=== PATIENT | female | born 1945 | race Caucasian/White ===

== ENCOUNTER 2018-01-23 14:10 | Inpatient (IN) | payer OTHER ==
[~2018-01-23] VITALS: Ht 167.6 cm; Wt 68.5 kg
[2018-01-23 14:12] VITALS: BP 112/66
--- NOTE | 2018-01-23 14:12 | NUR ---
PT BIBA BLS TO BED 5
--- NOTE | 2018-01-23 14:20 | NUR ---
DINESH FROM [facility] FOR LOSS OF APITITE X 3 DAYS. CURRENTLY BEING TREATED FOR UTI AND YEAST INFECTION. LOSS OF 12 LBS OVER PAST MONTH. PT IS NON VERBAL DUE TO CVA HISTORY, ACCORDING TO EMS ONLY ANSWERS YES AND NO PERIODICALLY. TRANSFERED TO BED 5 VIA GURNEY HX: HTN, DM, CVA
[2018-01-23 15:39] LABS: BASOPHILS % (AUTO) 0.3 % (0.0-2.0); EOSINOPHILS # (AUTO) 0.1 K/uL (0-0.4); EOSINOPHILS % (AUTO) 1.2 % (0.0-4.0); HEMATOCRIT 45.7 % (36-48); HEMOGLOBIN 15.4 g/dL (12.0-16.0); LYMPHOCYTES % (AUTO) 24.7 % (20.5-51.1); MEAN CORPUSCULAR HEMOGLOBIN 32 pg (27-31); MEAN CORPUSCULAR HGB CONC 34 g/dL (33-37); MEAN CORPUSCULAR VOLUME 95.9 fL (80-94); MONOCYTES # (AUTO) 0.6 K/uL (0.8-1.0); MONOCYTES % (AUTO) 7.3 % (1.7-9.3); NEUTROPHILS # (AUTO) 5.4 K/uL (1.8-7.7); NEUTROPHILS % (AUTO) 66.5 % (42.2-75.2); PLATELET COUNT (AUTO) 220 K/uL (140-450); RED BLOOD CELL COUNT(AUTO) 4.76 MIL/uL (4.20-5.40); RED CELL DISTRIBUTION WIDTH 13.2 % (11.6-13.7); WHITE BLOOD COUNT (AUTO) 8.2 K/uL (4.8-10.8)
--- NOTE | 2018-01-23 16:00 | NUR ---
# 16 FR Urinary catheter inserted utilizing sterile technique. Immediate return of 30 ml dwain/yellow slightly cloudy urine noted. Urine sample collected and sent to lab. Pt tolerated procedure well.
[2018-01-23 16:07] LABS: ANION GAP 14.3 (8-16); CARBON DIOXIDE 29.5 mmol/L (21-32); CHLORIDE 98 mmol/L (98-107); CREATININE 0.7 mg/dL (0.6-1.3); GLUCOSE 214 mg/dL (74-106); POTASSIUM 3.8 mmol/L (3.5-5.1); SODIUM SERUM 138 mmol/L (136-145); UREA NITROGEN, BLOOD 23 mg/dL (7-18)
[2018-01-23 16:12] LABS: ALBUMIN 3.3 g/dL (3.4-5.0); ASPARTATE AMINOTRANSFERASE 35 U/L (15-37); TOTAL BILIRUBIN 0.6 mg/dL (0.0-1.0)
--- NOTE | 2018-01-23 16:28 | NUR ---
URINE SPECIMEN SEND TO THE LAB FOR URINALYSIS
[2018-01-23 16:54] LABS: APPEARANCE,URINE SL CLOUDY (CLEAR); BILIRUBIN,URINE NEGATIVE (NEGATIVE); BLOOD, URINE TRACE-L (NEGATIVE); COLOR,URINE YELLOW (YELLOW); LEUKOCYTE ESTERASE ,URINE 2+ (NEGATIVE); NITRITE, URINE NEGATIVE (NEGATIVE); PH,URINE 5.5 (5.0-9.0); UGLUCOSE NEGATIVE (NEGATIVE)
[2018-01-23 17:04] LABS: RBC,URINE 3-10 (FEW) /HPF (0-5)
[2018-01-23 17:05] LABS: WBC,URINE TOO MANY TO COUNT /HPF (0-5); YEAST,URINE Few /HPF (None Seen)
[2018-01-23] MEDS ORDERED: NACL 0.9% 1,000 ML IV ONE (17:15)
[2018-01-23] MEDS ORDERED: cefTRIAXone 1,000 MG VIAL ONE (17:25)
[2018-01-23] MEDS ORDERED: DEXT 5% / NACL 0.45% 1,000 ML IV SCH (17:36)
[2018-01-23] MEDS ORDERED: ONDANSETRON 4 MG/2 ML VIAL IM/IVP PRN (17:40)
[2018-01-23] MEDS ORDERED: ACETAMINOPHEN 325 MG TAB PO PRN (17:40)
[2018-01-23] MEDS ORDERED: LORazepam 2 MG/ML VIAL IM/IVP PRN (17:40)
[2018-01-23] MEDS ORDERED: DOCUSATE SODIUM 100 MG GELCAP PO PRN (17:40)
[2018-01-23] MEDS ORDERED: ZOLPIDEM 5 MG TAB PO PRN (17:40)
--- NOTE | 2018-01-23 18:15 | NUR ---
Patient will be admitted to care of DR FORMAN. Admited to TELE room 107B. Belongings list completed. Report to PRUDENCE MUIR.
--- NOTE | 2018-01-23 18:20 | NUR ---
PT ADMITTED TO TELE. BEDSIDE REPORT GIVEN BY DUSTY KELLY RN. PT TRANSFERRED TO BED FROM [facility] WITH ASSIST. PT WITH R SIDED WEAKNESS. PT IS AWAKE AND ORIENTED X1. UNABLE TO STATE BIRTHDAY, DATE, OR PLACE. PT IS CALM. HAD INCONTINENT URINE AND BM. CHANGED LINENS AND GOWN. NO WOUNDS ON BACK OR BOTTOM. WITH MULTIPLE SKIN ABRASIONS ON R LLE AND R FOOT. COVERED WITH DRY DRESSING AND VERSATEL. TELE MONITOR APPLIED. MRSA SWAB DONE. VS: TEMP 97.8, HR 60, BP 124/61, RR 18, O2 SAT 97% ON RA. NO COUGH. NO SOB. IV TO L AC 20G INTACT. NS BOLUS STILL INFUSING. ORIENTED PT TO ROOM AND CALL LIGHT. PT STATED "OK." BUT COULD NOT RETURN DEMONSTRATION OF UNDERSTANDING CALL LIGHT USE. BED ALARM ON. WILL CONTINUE TO MONITOR.
[2018-01-23 18:27] LABS: BARBITURATE, URINE NEG. ng/ml (NEG <=200); BENZODIAZEPINE, URINE NEG. ng/mL (NEG <=200); CANNABINOID, URINE NEG. ng/mL (NEG <=50); COCAINE, URINE NEG. ng/mL (NEG <=300); OPIATE, URINE NEG. ng/mL (NEG <=2000); PHENCYCLIDINE SCREEN,URINE NEG. ng/mL (NEG <=25)
[2018-01-23 18:43] LABS: MAGNESIUM 1.8 mg/dL (1.8-2.4); PHOSPHORUS 3.4 mg/dL (2.5-4.9); THYROID STIMULATING HORMONE 1.35 uIU/mL (0.34-3.74)
[2018-01-23 18:50] LABS: PROTHROMBIN TIME 10.9 secs (10.8-13.4)
[2018-01-23] MEDS ORDERED: INSU100S22 SUBQ (19:21)
[2018-01-23] MEDS ORDERED: LISI10TA11 PO (19:21)
[2018-01-23] MEDS ORDERED: ASPI81CT89 PO (19:21)
[2018-01-23] MEDS ORDERED: APID SUBQ (19:21)
[2018-01-23] MEDS ORDERED: MIRT15TA PO (19:21)
[2018-01-23] MEDS ORDERED: LOV40I SUBQ (19:21)
[2018-01-23] MEDS ORDERED: ATOR40TA PO (19:21)
--- NOTE | 2018-01-23 19:29 | NUR ---
ENDORSED PT TO WET ROASTER NURSE ALEX AT BEDSIDE FOR CONTINUITY OF CARE. PT IN STABLE CONDITION.
--- NOTE | 2018-01-23 19:30 | NUR ---
RECEIVED FROM AM RN IN BED AWAKE AND ALERT. A/O X 1. FROM SNF WITH DX. OF UTI, DEHYDRATION AND ANOREXIA. PT. WITH ABRASIONS TO RIGHT LOWER EXTREMITY. INCONTINENT TO B AND B. IVF SITE TO LAC#20 INTACT AND NO INFILTRATION NOTED. BED ALARM CLINICAL PROJECT ASSISTANT LIGHT WITH IN REACH. NEEDS WILL BE ANTICIPATED AND WILL BE MET. TELEMETRY MONITORING. AFEBRILE. NO EDEMA NOTED.
[2018-01-23] MEDS ORDERED: DEXTROSE 50% 50 ML SYR IVP PRN ×2 (20:00)
[2018-01-23 20:39] VITALS: BP 126/62
[2018-01-23] MEDS: BLOOD GLUCOSE MONITORING 1 DEV DEV FS SCH (21:00)
[2018-01-23] MEDS: NACL 0.9% 1,000 ML IV SCH (21:00)
[2018-01-23] MEDS ORDERED: NON-FORMULARY ITEM (Insulin Glargine,Hum.rec.anlog (Lantus Solostar) 15 UNIT) SUBQ SCH (21:00)
[2018-01-23] MEDS: ATORVASTATIN 20 MG TAB PO SCH (22:05)
[2018-01-23] MEDS: MIRTAZAPINE 15 MG TAB PO SCH (22:05)
[2018-01-23] MEDS: INSULIN LANTUS 100 UNITS/ML 10 ML VIAL SUBQ SCH (22:08)
--- NOTE | 2018-01-24 | NUR ---
PT. SLEEPING WELL AT THIS TIME. NO NOTED S/S OF HYPO/HYPERGLYCEMIA. IVF INFUSING WELL. DENIES PAIN. WAKES UP EASILY WHEN TOUCHED. NEEDS ANTICIPATED AND MET. TURN TO SIDES Q 2H. PT. ABLE TO HELP IN TURNING SELF. ENCOURAGED TO STAY ON TURNED SIDE.
[2018-01-24 00:52] VITALS: BP 113/40
--- NOTE | 2018-01-24 02:02 | NUR ---
RESIDENT MADE AWARE OF ABRASIONS TO SKIN. WAITING FOR TREATMENT ORDERS.
--- NOTE | 2018-01-24 04:10 | NUR ---
SLEEPING WELL. NO RESTLESSNESS NOTED. CALL LIGHT WITH IN REACH.
[2018-01-24 04:44] VITALS: BP 127/51
[2018-01-24] MEDS: NACL 0.9% 1,000 ML IV SCH ×2 (05:59→09:39)
[2018-01-24] MEDS: BLOOD GLUCOSE MONITORING 1 DEV DEV FS SCH ×4 (06:36→20:52)
--- NOTE | 2018-01-24 07:20 | NUR ---
RECEIVED REPORT FROM SOLIDWORKS DRAFTER RN. PT IN STABLE CONDITION, RESTING IN BED AND AROUSABLE BY VOICE. RIGHT SIDED WEAKNESS DUE TO HX CVA. ABRASIONS ON RIGHT LEG AND TOES COVERED WITH CLEAN AND DRY DRESSINGS. IV SITE PATENT AND RUNNING IVF PER MD ORDERS. ON DYSPHAGIA PRECAUTIONS. PT IS INCONTINENT. HEART RHYTHM IS REGULAR. LUNGS CTA. ALL SAFETY MEASURES IN PLACE, WILL CONTINUE TO MONITOR.
--- NOTE | 2018-01-24 07:23 | NUR ---
ENDORSED TO THE AM RN SLEEPING. NO RESTLESSNESS. TELEMETRY MONITORING. NEEDS ANTICIPATED AND MET. TOTAL CARE.
[2018-01-24] MEDS ORDERED: INSULIN GLULISINE 5 UNIT SUBQ SCH (07:30)
[2018-01-24 08:00] VITALS: BP 128/65
--- NOTE | 2018-01-24 08:00 | NUR ---
PT REFUSING BREAKFAST. ENCOURAGED PATIENT TO TRY SOME FOODS, BUT PATIENT STATES SHE HAS "NO APPETITE".
[2018-01-24 08:14] LABS: T4 (THYROXINE) 7.5 ug/dL (4.5-12.0)
[2018-01-24] MEDS ORDERED: FLUCONAZOLE 100 MG TAB PO SCH ×2 (08:15→09:00)
[2018-01-24] MEDS: LACTOBACILLUS RHAMNOSUS GG 1 EACH CAP PO SCH (09:29)
[2018-01-24] MEDS: ASPIRIN 81 MG TAB.CHEW PO SCH (09:29)
--- NOTE | 2018-01-24 09:29 | NUR ---
SCHEDULED MEDS ADMINISTERED PER MD ORDERS. PT DENIES PAIN AND DISCOMFORT.
[2018-01-24] MEDS: LISINOPRIL 10 MG TAB PO SCH (09:30)
[2018-01-24] MEDS: ENOXAPARIN 40 MG/0.4 ML SYR SUBQ SCH (09:34)
--- NOTE | 2018-01-24 09:35 | NUR ---
PATIENT HAS BEEN SCREENED AND CATEGORIZED HIGH NUTRITION RISK. PATIENT WILL BE SEEN WITHIN 1-2 DAYS OF ADMISSION. 01/24/18-01/25/[address]
[2018-01-24 09:45] LABS: BASOPHILS # (AUTO) 0.1 K/uL (0.00-0.22); EOSINOPHILS # (AUTO) 0.3 K/uL (0-0.4); EOSINOPHILS % (AUTO) 4.2 % (0.0-4.0); HEMATOCRIT 40.3 % (36-48); HEMOGLOBIN 13.6 g/dL (12.0-16.0); LYMPHOCYTES # (AUTO) 2.2 K/uL (2.5-16.5); LYMPHOCYTES % (AUTO) 29.2 % (20.5-51.1); MEAN CORPUSCULAR HEMOGLOBIN 33 pg (27-31); MEAN CORPUSCULAR HGB CONC 34 g/dL (33-37); MONOCYTES # (AUTO) 0.5 K/uL (0.8-1.0); MONOCYTES % (AUTO) 5.9 % (1.7-9.3); NEUTROPHILS # (AUTO) 4.6 K/uL (1.8-7.7); NEUTROPHILS % (AUTO) 59.7 % (42.2-75.2); PLATELET COUNT (AUTO) 199 K/uL (140-450); RED CELL DISTRIBUTION WIDTH 13.1 % (11.6-13.7); WHITE BLOOD COUNT (AUTO) 7.7 K/uL (4.8-10.8)
[2018-01-24 10:17] LABS: ANION GAP 10.9 (8-16); CARBON DIOXIDE 29.4 mmol/L (21-32); CHLORIDE 101 mmol/L (98-107); CREATININE 0.6 mg/dL (0.6-1.3); GLUCOSE 205 mg/dL (74-106); POTASSIUM 3.3 mmol/L (3.5-5.1); SODIUM SERUM 138 mmol/L (136-145); UREA NITROGEN, BLOOD 13 mg/dL (7-18)
[2018-01-24] MEDS ORDERED: POTASSIUM CHLORIDE 10 MEQ TABER PO SCH (11:15)
[2018-01-24 12:00] VITALS: BP 130/45
--- NOTE | 2018-01-24 12:30 | NUR ---
PT REFUSING LUNCH. QUALITY CONTROL ASSESSOR HELPED PATIENT WITH TRYING EACH TYPE OF FOOD, BUT PATIENT CONTINUES TO REFUSE AFTER TRYING THE FOODS.
[2018-01-24] MEDS: INSULIN LISPRO SLIDING SCALE 100 UNITS/ML VIAL SUBQ PRN (12:32)
[2018-01-24] MEDS ORDERED: POTASSIUM CHLORIDE 20% 40 MEQ/15 ML UDC PO SCH (12:39)
--- NOTE | 2018-01-24 13:16 | NUR ---
PT DRANK ABOUT HALF OF THE PRESCRIBED KCL ORAL SOLUTION. REFUSES TO CONTINUE DRINKING IT.
--- NOTE | 2018-01-24 14:30 | NUR ---
DRESSING ON RIGHT LEG CHANGED. Addendum: 01/24/18 at 1659 by Chiqui Jama Meng, RN ALL DRESSINGS (3) ON RIGHT LEG CHANGED. ABRASIONS ON RIGHT TOES OPEN TO AIR, NO DRAINAGE NOTED.
[2018-01-24 14:31] LABS: CHOL/HDL RATIO 3.2 (1-4.5)
[2018-01-24 16:00] VITALS: BP 125/42
--- NOTE | 2018-01-24 16:00 | NUR ---
Palliative Care Specialist Notes Late Entry: I attempted to contact Patient's friend Subha Sosa at . Patient friend was not available and I left her a voicemail MGS with my contact Inf. and a request for a call back.
--- NOTE | 2018-01-24 16:01 | NUR ---
PT SLEEPING IN BED, AROUSABLE BY VOICE. NO COMPLAINTS OF PAIN OR DISCOMFORT. WILL CONTINUE TO MONITOR.
--- NOTE | 2018-01-24 16:20 | NUR ---
Punch Hand Notes Late entry: I call [facility] at to discuss and gather patient's additional information. I spoke to Cleo from admissions stating that patient is on a 7 days skilled behold. Per staff patient has a health care provider Dr. Edy Boone who see patient as needed in the facility and patient is able to return to [facility] when she is ready and clear for discharge.
--- NOTE | 2018-01-24 17:07 | NUR ---
NOTIFIED DR. SNELL REGARDING PT REFUSING BREAKFAST AND DINNER AND LAST BLOOD SUGAR AT [address] SNELL TO PUT IN ORDER FOR D5 IVF. Addendum: 01/24/18 at 1919 by Chiqui Jama Meng, RN RobertNS
[2018-01-24] MEDS: DEXT 5% / NACL 0.9% 500 ML IV SCH (19:18)
--- NOTE | 2018-01-24 19:19 | NUR ---
ENDORSED PLAN OF CARE TO BOOKSEAMER BLINDSTITCH RN. PATIENT IS IN STABLE CONDITION.
--- NOTE | 2018-01-24 19:19 | NUR ---
RECEIVED PT REPORT AT BEDSIDE. PT IN STABLE CONDITION. PT IS AWAKE. PT ON RA. IV ACCESS IN L AC 20G WITH IVF RUNNING PER MD ORDERS. IV IS PATENT AND INTACT. PT HAS R SIDED WEAKNESS. PT HAS ABRASIONS TO R LEG AND FOOT. NO C/O PAIN AT THIS TIME. BED LOCKED, LOW POSITION, WITH SIDE RAILS UP X2. BOARD UPDATED. WILL CONTINUE TO MONITOR PT.
[2018-01-24 20:00] VITALS: BP 102/44
[2018-01-24] MEDS: ATORVASTATIN 20 MG TAB PO SCH (20:52)
--- NOTE | 2018-01-24 20:52 | NUR ---
BS CHECKED, 128. NO INSULIN COVERAGE NEEDED PER MD ORDERS.
[2018-01-24] MEDS: MIRTAZAPINE 15 MG TAB PO SCH (20:53)
[2018-01-24] MEDS: INSULIN LANTUS 100 UNITS/ML 10 ML VIAL SUBQ SCH (20:54)
--- NOTE | 2018-01-24 23:00 | NUR ---
PT IS ASLEEP IN BED. NO S/SX OF DISTRESS. WILL CONTINUE TO MONITOR.
[2018-01-25] VITALS: BP 98/60
--- NOTE | 2018-01-25 00:47 | NUR ---
PT VS WITHIN NORMAL LIMITS. NO S/SX OF DISTRESS. WILL CONTINUE TO MONITOR.
[2018-01-25] MEDS: DEXT 5% / NACL 0.9% 500 ML IV SCH ×2 (01:45→09:50)
[2018-01-25] MEDS: NACL 0.9% 1,000 ML IV SCH ×2 (03:00→12:45)
--- NOTE | 2018-01-25 03:01 | NUR ---
PT ASLEEP IN BED. NO S/SX OF DISTRESS. WILL CONTINUE TO MONITOR PT.
[2018-01-25 04:00] VITALS: BP 122/74
--- NOTE | 2018-01-25 04:05 | NUR ---
PT VS WITHIN NORMAL LIMITS. ALL NEEDS ARE MET AT THIS TIME. WILL CONTINUE TO MONITOR PT.
[2018-01-25] MEDS: BLOOD GLUCOSE MONITORING 1 DEV DEV FS SCH ×4 (05:25→20:00)
--- NOTE | 2018-01-25 05:26 | NUR ---
BS CHECKED, 146. PER MD ORDERS NO COVERAGE NEEDED. WILL CONTINUE TO MONITOR PT.
--- NOTE | 2018-01-25 07:17 | NUR ---
ENDORSED PT TO DAY SHIFT NURSE FOR CONTINUITY OF CARE. PT IN STABLE CONDITION.
[2018-01-25 08:00] VITALS: BP 134/61
--- NOTE | 2018-01-25 08:00 | NUR ---
PT ENCOURAGED TO EAT MORE FOR BREAKFAST.
--- NOTE | 2018-01-25 09:08 | NUR ---
RECEIVED REPORT FROM COUNTING MACHINE OPERATOR RN. PT SLEEPING IN BED, AROUSABLE BY VOICE. NO COMPLAINTS OF PAIN OR DISCOMFORT. RIGHT SIDED WEAKNESS DUE TO HX CVA. PT IS ON BEDREST AND INCONTINENT. ABRASIONS ON RIGHT LEG AND TOES, DRESSINGS DRY AND INTACT. PT REFUSED MORNING LABS. ALL SAFETY PRECAUTIONS IN PLACE, WILL CONTINUE TO MONITOR. Addendum: 01/25/18 at 0913 by Chiqui Jama Meng, RN REAL TIME [id number] IV SITE PATENT AND RUNNING IVF PER MD ORDERS. ON DYSPHAGIA PRECAUTIONS.
--- NOTE | 2018-01-25 09:21 | NUR ---
01/25/18 RD INITIAL ASSESSMENT COMPLETED PLEASE REFER TO NUTRITION ASSESSMENT UNDER CARE ACTIVITY FOR ESTIMATED NUTRITIONAL NEEDS. RD RECOMMENDATIONS: 1. CONTINUE ON CCHO 60 GM, MECHANICAL SOFT, NECTAR THICK LIQUIDS DIET TOLERATED. DIETARY/NURSING TO ENCOURAGE PO INTAKES. 2. CONSULT RDN PRN. 3. RD WILL F/U 2-3 DAYS; HIGH RISK. KAY JACOBSEN, MS, RDN
[2018-01-25] MEDS: ASPIRIN 81 MG TAB.CHEW PO SCH (10:11)
[2018-01-25] MEDS: LACTOBACILLUS RHAMNOSUS GG 1 EACH CAP PO SCH (10:11)
[2018-01-25] MEDS: LISINOPRIL 10 MG TAB PO SCH (10:11)
--- NOTE | 2018-01-25 10:11 | NUR ---
SCHEDULED MEDS ADMINISTERED. PAIN DENIES PAIN AND DISCOMFORT.
[2018-01-25] MEDS: ENOXAPARIN 40 MG/0.4 ML SYR SUBQ SCH (10:13)
[2018-01-25 12:00] VITALS: BP 147/73
[2018-01-25 12:11] LABS: HEMATOCRIT 41.2 % (36-48); HEMOGLOBIN 13.7 g/dL (12.0-16.0); LYMPHOCYTES % (AUTO) 29.8 % (20.5-51.1); MEAN CORPUSCULAR HEMOGLOBIN 32 pg (27-31); MEAN CORPUSCULAR HGB CONC 33 g/dL (33-37); MEAN CORPUSCULAR VOLUME 96.1 fL (80-94); NEUTROPHILS % (AUTO) 57.1 % (42.2-75.2); PLATELET COUNT (AUTO) 178 K/uL (140-450); RED BLOOD CELL COUNT(AUTO) 4.29 MIL/uL (4.20-5.40); RED CELL DISTRIBUTION WIDTH 13.3 % (11.6-13.7)
[2018-01-25 12:12] LABS: BASOPHILS % (AUTO) 0.8 % (0.0-2.0); EOSINOPHILS # (AUTO) 0.2 K/uL (0-0.4); LYMPHOCYTES # (AUTO) 1.8 K/uL (2.5-16.5); MONOCYTES # (AUTO) 0.5 K/uL (0.8-1.0); MONOCYTES % (AUTO) 8.3 % (1.7-9.3); NEUTROPHILS # (AUTO) 3.4 K/uL (1.8-7.7)
[2018-01-25] MEDS: INSULIN LISPRO SLIDING SCALE 100 UNITS/ML VIAL SUBQ PRN ×2 (12:44→21:10)
[2018-01-25 12:46] LABS: CARBON DIOXIDE 26.6 mmol/L (21-32); CHLORIDE 105 mmol/L (98-107); CREATININE 0.6 mg/dL (0.6-1.3); GLUCOSE 189 mg/dL (74-106); POTASSIUM 3.6 mmol/L (3.5-5.1); SODIUM SERUM 140 mmol/L (136-145); UREA NITROGEN, BLOOD 6 mg/dL (7-18)
--- NOTE | 2018-01-25 12:50 | NUR ---
IVF INFUSING AT SLOWER RATE DUE TO PATIENT BENDING LEFT ARM, WHERE THE IV IS INSERTED IN LEFT AC. EDUCATED PATIENT ON KEEPING LEFT ARM STRAIGHT POSSIBLE.
[2018-01-25 12:58] LABS: MAGNESIUM 1.5 mg/dL (1.8-2.4); PHOSPHORUS 3.2 mg/dL (2.5-4.9)
[2018-01-25] MEDS ORDERED: MAG SULF 2000 MG/WATER PREMIX 50 ML IV ONE (13:50)
[2018-01-25] MEDS: DEXT 5% /NACL 0.9% 1,000 ML IV SCH (13:58)
--- NOTE | 2018-01-25 14:30 | NUR ---
PT RESTING IN BED, AROUSABLE BY VOICE. DENIES PAIN AND DISCOMFORT.
[2018-01-25] MEDS: MAGNESIUM SULFATE 1GM in DEXTROSE 5% 100 ML PREMIX IV SCH ×2 (15:14→18:08)
[2018-01-25 16:00] VITALS: BP 132/59
--- NOTE | 2018-01-25 16:30 | NUR ---
BLOOD GLUCOSE IS 116. NO INSULIN COVERAGE NEEDED.
--- NOTE | 2018-01-25 18:08 | NUR ---
SCHEDULED MAGNESIUM SULFATE ADMINISTERED. ENCOURAGED PT TO KEEP ARM STRAIGHT TO AID IN V PATENCY.
--- NOTE | 2018-01-25 19:16 | NUR ---
ENDORSED PLAN OF CARE TO KEY ATTENDANT RN. PT IN STABLE CONDITION.
--- NOTE | 2018-01-25 19:16 | NUR ---
RECEIVED PT REPORT AT PT BEDSIDE. PT IN STABLE CONDITION. PT IS AWAKE IN BED. IV ACCESS IN L AC 20G WITH IVF RUNNING PER MD ORDERS. PT IS ON RA. ABRASIONS TO R LEG, FOOT AND TOES. BED IS LOCKED, LOWEST POSITION, WITH SIDE RAILS UP X2. CALL LIGHT IS WITHIN REACH. BOARD UPDATED. WILL CONTINUE TO MONITOR PT.
[2018-01-25 20:00] VITALS: BP 101/56
[2018-01-25] MEDS: ATORVASTATIN 20 MG TAB PO SCH (21:06)
[2018-01-25] MEDS: MIRTAZAPINE 15 MG TAB PO SCH (21:06)
--- NOTE | 2018-01-25 21:10 | NUR ---
BS CHECKED, 174. INSULIN COVERAGE GIVEN PER MD ORDERS. ALL OTHER ORDERED MEDICATIONS ADMINISTERED. PT TOLERATED WELL. WILL CONTINUE TO MONITOR.
[2018-01-25] MEDS: INSULIN LANTUS 100 UNITS/ML 10 ML VIAL SUBQ SCH (21:11)
[2018-01-26] VITALS: BP 112/53
--- NOTE | 2018-01-26 | NUR ---
PT VS WITHIN NORMAL LIMITS. PT RESTING COMFORTABLY IN BED. WILL CONTINUE TO MONITOR.
[2018-01-26] MEDS: DEXT 5% /NACL 0.9% 1,000 ML IV SCH ×2 (02:23→20:40)
--- NOTE | 2018-01-26 02:23 | NUR ---
NEW BAG OF IVF STARTED. PT IS WATCHING TV IN BED. ALL NEEDS ARE MET AT THIS TIME. WILL CONTINUE TO MONITOR.
--- NOTE | 2018-01-26 03:30 | NUR ---
NEW IV 22G INSERTED IN R HAND. L AC IV DISCONTINUED D/T LEAKING. PT TOLERATED WELL. WILL CONTINUE TO MONITOR.
[2018-01-26 04:00] VITALS: BP 131/62
[2018-01-26] MEDS: BLOOD GLUCOSE MONITORING 1 DEV DEV FS SCH ×4 (05:46→20:40)
[2018-01-26] MEDS: INSULIN LISPRO SLIDING SCALE 100 UNITS/ML VIAL SUBQ PRN ×3 (05:51→16:49)
--- NOTE | 2018-01-26 05:51 | NUR ---
BS CHECKED, 158. INSULIN COVERAGE GIVEN PER MD ORDERS. WILL CONTINUE TO MONITOR.
[2018-01-26 07:16] LABS: BASOPHILS % (AUTO) 0.3 % (0.0-2.0); EOSINOPHILS # (AUTO) 0.2 K/uL (0-0.4); EOSINOPHILS % (AUTO) 3.6 % (0.0-4.0); HEMATOCRIT 40.2 % (36-48); HEMOGLOBIN 13.8 g/dL (12.0-16.0); LYMPHOCYTES # (AUTO) 1.8 K/uL (2.5-16.5); LYMPHOCYTES % (AUTO) 26.5 % (20.5-51.1); MEAN CORPUSCULAR HEMOGLOBIN 33 pg (27-31); MEAN CORPUSCULAR HGB CONC 34 g/dL (33-37); MONOCYTES # (AUTO) 0.6 K/uL (0.8-1.0); MONOCYTES % (AUTO) 8.2 % (1.7-9.3); NEUTROPHILS # (AUTO) 4.2 K/uL (1.8-7.7); NEUTROPHILS % (AUTO) 61.4 % (42.2-75.2); PLATELET COUNT (AUTO) 186 K/uL (140-450); RED BLOOD CELL COUNT(AUTO) 4.23 MIL/uL (4.20-5.40); RED CELL DISTRIBUTION WIDTH 13.2 % (11.6-13.7); WHITE BLOOD COUNT (AUTO) 6.8 K/uL (4.8-10.8)
--- NOTE | 2018-01-26 07:16 | NUR ---
ENDORSED PT TO DAY SHIFT NURSE FOR CONTINUITY OF CARE. PT IN STABLE CONDITION.
--- NOTE | 2018-01-26 07:17 | NUR ---
RECEIVED REPORT FROM THE QUALITY ASSURANCE SPECIALIST NURSE AT BEDSIDE FOR CONTINUITY OF CARE. PT IS SLEEPING. NOTED PT IS ON ROOM AIR. PT HAS R SIDED WEAKNESS. SKIN- R LEG 3 COVERED DRESSING. PILLOW SUPPORTING LEG IS STAINED MODERATELY WITH DRAINAGE. WOUND CONSULT, SWALLOW EVAL, FNS EVAL ALL SCHEDULED FOR TODAY. IV ON R HAND 22G D5NS AT 60ML INFUSING. WILL CONTINUE TO MONITOR PT.
[2018-01-26 07:21] LABS: ANION GAP 8.5 (8-16); CHLORIDE 105 mmol/L (98-107); CREATININE 0.6 mg/dL (0.6-1.3); GLUCOSE 164 mg/dL (74-106); POTASSIUM 3.5 mmol/L (3.5-5.1); SODIUM SERUM 140 mmol/L (136-145); UREA NITROGEN, BLOOD 4 mg/dL (7-18)
[2018-01-26 07:24] LABS: PHOSPHORUS 3.2 mg/dL (2.5-4.9)
[2018-01-26 08:00] VITALS: BP 121/64
--- NOTE | 2018-01-26 08:00 | NUR ---
V/S WITHIN NORMAL RANGE. BREAKFAST IS HERE BUT IS REFUSING. PAVING CONTRACTOR WILL TRY AND SEE IF SHE CAN EAT SOME. WILL BE BACK WITH MORNING MEDS.
[2018-01-26] MEDS ORDERED: ASCO1CAP75 PO (08:30)
[2018-01-26] MEDS ORDERED: SULF-58 PO (08:30)
[2018-01-26] MEDS: ASPIRIN 81 MG TAB.CHEW PO SCH (09:03)
[2018-01-26] MEDS: LACTOBACILLUS RHAMNOSUS GG 1 EACH CAP PO SCH (09:04)
[2018-01-26] MEDS: LISINOPRIL 10 MG TAB PO SCH (09:04)
[2018-01-26] MEDS: ENOXAPARIN 40 MG/0.4 ML SYR SUBQ SCH (09:05)
--- NOTE | 2018-01-26 09:05 | NUR ---
ADMINISTERED MORNING MEDS, CRUSHED IN APPLE SAUCE. PT TOLERATED WELL. WILL CONTINUE TO MONITOR PT.
[2018-01-26] MEDS ORDERED: PROBIOTIC SCREEN 1 EA MISC MC PRN (10:45)
[2018-01-26 12:00] VITALS: BP 121/58
--- NOTE | 2018-01-26 13:21 | NUR ---
MAIL ORDER CLERK NOTE [id number] Bedside swallow evaluation completed following clearance by PRUDENCE Kapoor. Please refer to MAIL ORDER CLERK evaluation for full report. Recommend: -Continue mech soft/nectar thick liquid diet -Supervision for safety and PO intake, upright at 90 during and 20 min after intake, small bites/sips, slow rate, alternate bites/sips -Speech Lang Path consult to determine pt preferences (d/t pt aphasia, recommend use pictures to allow pt to answer y/n) -Recommend f/u with speech therapy services targeting language impairments at next level of care. -No further inpatient MAIL ORDER CLERK intervention indicated. PVE w/ RN re: results and recommendations. Provided further clarification on meeting pt language needs by emphasizing pictures when consulting w/pt re: dietary preferences. RN voiced understanding. [id number]: SHAHNAZ [id number]: SHAHNAZ [id number]: SHAHNAZ Swallow NOMS 3
--- NOTE | 2018-01-26 14:00 | NUR ---
SPOKE WITH RN AND FOOD PROCESSING PLANT MANAGER REGARDING PATIENTS EATING HABITS. RN REPORTS PATIENT WITH NO TROUBLE CHEWING / SWALLOWING AND BELIEVES PATIENT HAS A POOR APPETITE VS CHEWING /SWALLOWING PROBLEM. OBSERVED FOOD PROCESSING PLANT MANAGER HELPING PATIENT EAT LUNCH AT TIME OF RD VISIT. PATIENT RESPONDS TO YES / NO QUESTIONING BY SHAKING HEAD. PER PATIENT, NO TROUBLE OR PAIN SWALLOWING OR CHEWING FOODS. FOOD PROCESSING PLANT MANAGER REPORTS PATIENT PREFERS SOFTER TEXTURE FOODS AND IS DELAYED WITH SWALLOWING FOODS. SPOKE WITH RESIDENT PHYSICIAN REGARDING INTERACTIONS WITH PATIENT AND NURSING STAFF. RD AND PHYSICIAN IN AGREEMENT TO CONTINUE CURRENT DIET WITH CLOSE SUPERVISION FROM NURSING STAFF DURING MEAL TIMES. PRODUCT MANAGEMENT ANALYST RECOMMENDATIONS PENDING. PLEASE REFER TO RD INITIAL ASSESSMENT 01/25/18 FOR FURTHER RECOMMENDATIONS AND ESTIMATED NUTRIENT NEEDS. FOLLOW UP ASSESSMENT TO BE DONE 01/28/18 UNLESS CONSULTED SOONER. ARMANDO MOORE RD
--- NOTE | 2018-01-26 14:15 | NUR ---
spoke to Chiqui from [facility] and will not authorize transport transfer. will contact Nigel at [facility].
--- NOTE | 2018-01-26 15:00 | NUR ---
Quill Reamer Notes: I faxed to [facility] at Patient's Clinical Information and MD order to return to SNF with Antibiotics.
[2018-01-26 16:00] VITALS: BP 114/51
--- NOTE | 2018-01-26 16:35 | NUR ---
Homicide Squad Captain Notes: I received a call from abdiaziz Barkley at Stating that she has a problem and is unable to accept Patient back to the facility due to Ins. Scan won't authorize the patient to come back. I asked Abdiaziz additional information about patient and she agreed to send it back, I also asked her what was patient's discharge plan. Per Abdiaziz, facility was going to work with patient on a discharge plan this upcoming week unfortunately; she got sick and had to come to [facility]. I thanked abdiaziz for her information and I ended the call.
--- NOTE | 2018-01-26 17:00 | NUR ---
Caterers Helper Notes: I met with Patient on the attempt to inform her of the denial from insurance and discuss discharge. Patient was unable to responded any questions and was confused during meeting. Unable and unaware of location at [facility].
--- NOTE | 2018-01-26 17:35 | NUR ---
Manager Decision Support Notes: I faxed Board and Care Film Splicer Evangelist Dhaliwal at Patient's Clinical information for an evaluation to see if patient meets criteria for board and care placement.
--- NOTE | 2018-01-26 19:25 | NUR ---
ENDORSED PT TO THE TALENT SPECIALIST NURSE AT BEDSIDE FOR CONTINUITY OF CARE. PT IS IN STABLE CONDITION.
[2018-01-26] MEDS: ATORVASTATIN 20 MG TAB PO SCH (20:26)
[2018-01-26] MEDS: MIRTAZAPINE 15 MG TAB PO SCH (20:26)
--- NOTE | 2018-01-26 21:05 | NUR ---
MEDICATION GIVEN TOLERATED WELL. REPOSITIONED PATIENT TO HER SIDE AND PLACE IN COMFORTABLE POSITION. FALL PRECAUTION APPLIED. CALL LIGHT WITHIN REACH. NO S/S OF DISTRESS NOTED.
[2018-01-26] MEDS: INSULIN LANTUS 100 UNITS/ML 10 ML VIAL SUBQ SCH (21:21)
[2018-01-26 21:59] VITALS: BP 116/71
[2018-01-27] VITALS: BP 138/55
--- NOTE | 2018-01-27 01:10 | NUR ---
SEEN PATIENT ASLEEP ON BED. NO S/S OF DISTRESS. ALL NEEDS ATTENDED.
--- NOTE | 2018-01-27 01:58 | NUR ---
RECEIVED PATIENT AWAKE ON BED.FALL PRECAUTION APPLIED. DISCUSS PLAN OF CARE. CALL LIGHT WITHIN REACH. WILL CONTINUE TO MONITOR. Addendum: 01/27/18 at 0516 by Leo Melgar RN NOTE DONE @3811
--- NOTE | 2018-01-27 03:00 | NUR ---
REPOSITIONED PATIENT TO HER SIDE AND PLACE IN COMFORTABLE POSITION. FALL PRECAUTION APPLIED. CALL LIGHT WITHIN REACH. WILL CONTINUE TO MONITOR.
[2018-01-27 04:00] VITALS: BP 122/53
--- NOTE | 2018-01-27 05:00 | NUR ---
AM CARE DONE AND TURNED TO HER SIDE . NO S/S OF DISTRESS NOTED. CALL LIGHT WITHIN REACH.
[2018-01-27] MEDS: BLOOD GLUCOSE MONITORING 1 DEV DEV FS SCH ×4 (06:42→20:54)
[2018-01-27 07:13] LABS: BASOPHILS % (AUTO) 0.5 % (0.0-2.0); EOSINOPHILS # (AUTO) 0.3 K/uL (0-0.4); EOSINOPHILS % (AUTO) 5.6 % (0.0-4.0); HEMATOCRIT 38.2 % (36-48); LYMPHOCYTES # (AUTO) 2.4 K/uL (2.5-16.5); LYMPHOCYTES % (AUTO) 38.4 % (20.5-51.1); MEAN CORPUSCULAR HEMOGLOBIN 33 pg (27-31); MEAN CORPUSCULAR HGB CONC 34 g/dL (33-37); MEAN CORPUSCULAR VOLUME 96.4 fL (80-94); MONOCYTES # (AUTO) 0.6 K/uL (0.8-1.0); MONOCYTES % (AUTO) 9.1 % (1.7-9.3); NEUTROPHILS # (AUTO) 2.9 K/uL (1.8-7.7); NEUTROPHILS % (AUTO) 46.4 % (42.2-75.2); PLATELET COUNT (AUTO) 182 K/uL (140-450); RED BLOOD CELL COUNT(AUTO) 3.96 MIL/uL (4.20-5.40); RED CELL DISTRIBUTION WIDTH 13.3 % (11.6-13.7); WHITE BLOOD COUNT (AUTO) 6.2 K/uL (4.8-10.8)
--- NOTE | 2018-01-27 07:29 | NUR ---
ENDORSEMENT GIVEN AT BEDSIDE TO AM SHIFT NURSE FOR CONTINUITY OF CARE. PATIENT IN STABLE CONDITION.
--- NOTE | 2018-01-27 07:30 | NUR ---
RECEIVED REPORT FROM THE COMMISSARY REPRESENTATIVE NURSE AT BEDSIDE FOR CONTINUITY OF CARE. PT IS AWAKE AND ORIENTED. INTRODUCED MYSELF AND UPDATED THE BOARD. IV ON R HAND 22G D5NS @60ML INFUSING WELL. SKIN IN NON-INTACT. R LEG 3 WOUNDS, DRESSING INTACT. PLAN FOR TODAY: [facility]. WILL AWAIT ORDERS.
[2018-01-27 07:53] LABS: PHOSPHORUS 3.9 mg/dL (2.5-4.9)
[2018-01-27 07:54] LABS: ANION GAP 10.6 (8-16); CARBON DIOXIDE 29.1 mmol/L (21-32); CHLORIDE 108 mmol/L (98-107); CREATININE 0.5 mg/dL (0.6-1.3); GLUCOSE 138 mg/dL (74-106); POTASSIUM 3.7 mmol/L (3.5-5.1); SODIUM SERUM 144 mmol/L (136-145); UREA NITROGEN, BLOOD 4 mg/dL (7-18)
[2018-01-27 08:00] VITALS: BP 135/64
[2018-01-27] MEDS: LACTOBACILLUS RHAMNOSUS GG 1 EACH CAP PO SCH (09:10)
[2018-01-27] MEDS: LISINOPRIL 10 MG TAB PO SCH (09:10)
[2018-01-27] MEDS: ASPIRIN 81 MG TAB.CHEW PO SCH (09:10)
[2018-01-27] MEDS: ENOXAPARIN 40 MG/0.4 ML SYR SUBQ SCH (09:11)
--- NOTE | 2018-01-27 09:18 | NUR ---
ADMINISTERED MORNING MEDS CRUSHED IN APPLE SAUCE. PT TOLERATED WELL. NO SIGNS OF DISTRESS. DENIES PAIN. WILL CONTINUE TO MONITOR PT.
--- NOTE | 2018-01-27 10:00 | NUR ---
Him Director Notes: I contacted Board and Care Data Steward Evangelist Dhaliwal at to confirm that she received patient's clinical information faxed yesterday at . Per Evangelist She was out of the office at the time of my call however she was going to go to the office at about 11:00 review patient information and call me back with an answer to see if patient meets criteria for board and care placement.
[2018-01-27 12:00] VITALS: BP 145/80
[2018-01-27] MEDS: INSULIN LISPRO SLIDING SCALE 100 UNITS/ML VIAL SUBQ PRN ×3 (12:06→20:56)
--- NOTE | 2018-01-27 12:07 | NUR ---
ADMINISTERED 2U OF INSULIN FOR BS OF 193. PT TOLERATED WELL. WILL CONTINUITY OF CARE.
--- NOTE | 2018-01-27 15:00 | NUR ---
P/T HERE TO WORK WITH PT. PT GOT UP AND SAT ON SIDE OF BED WITH ASSISTANCE. PT BACK IN BED. WILL CONTINUE TO MONITOR PT.
--- NOTE | 2018-01-27 15:12 | NUR ---
FAXED CONCURRENT REVIEW TO [facility] [phone] PHONE VIDAL [phone]
[2018-01-27] MEDS: DEXT 5% /NACL 0.9% 1,000 ML IV SCH (15:58)
[2018-01-27 16:00] VITALS: BP 124/53
--- NOTE | 2018-01-27 16:38 | NUR ---
Metal Hanging Supervisor Notes: Board and Care Environmental Solutions Engineer Evangelist Dhaliwal at call me back stating that she has just finished reviewing patient's Clinical information and unfortunately patient is not accepted due to patient been bedbound. Per Evangelist she is unable to accept bed bound patients at these time. I thanked her for her information and I ended the call.
--- NOTE | 2018-01-27 19:20 | NUR ---
ENDORSED PT TO THE QUARTER TRIMMER NURSE AT BEDSIDE FOR CONTINUITY OF CARE. PT IS IN STABLE CONDITION.
--- NOTE | 2018-01-27 19:21 | NUR ---
RECEIVED PT AWAKE, AAOX4, VERBALLY RESPONSIVE WITH DELAYED AND SLIGHTLY GARBLED SPEECH DUE TO HX OF CVA, VITAL SIGNS STABLE, SB-SR ON TELE, DENIES ANY PAIN OR SOB, DRESSING TO RT FOOT DRY AND INTACT, IVF INFUSING WELL, PLAN OF CARE DISCUSS, SAFETY MEASURES IN PLACE, CALL LIGHT WITHIN REACH.
[2018-01-27 20:00] VITALS: BP 107/51
[2018-01-27] MEDS: ATORVASTATIN 20 MG TAB PO SCH (20:36)
[2018-01-27] MEDS: MIRTAZAPINE 15 MG TAB PO SCH (20:36)
--- NOTE | 2018-01-27 20:50 | NUR ---
BLOOD SUGAR CHECKED WITH 183 RESULT, COVERAGE GIVEN, SNACK PROVIDED BUT PT DOESN'T LIKE APPLE SAUCE, APPLE JUICE GIVEN WITH ASPIRATION PRECAUTION, DUE MEDS ADMINISTERED, ALL NEEDS ATTENDED.
[2018-01-27] MEDS: INSULIN LANTUS 100 UNITS/ML 10 ML VIAL SUBQ SCH (20:55)
[2018-01-28] VITALS: BP 108/48
--- NOTE | 2018-01-28 | NUR ---
PT SLEEPING, EASILY AROUSABLE, VITAL SIGNS STABLE, DENIES ANY PAIN, NO SOB NOTED, IVF INFUSING WELL, REPOSITIONED Q2H AND OFFLOAD PRESSURE AREAS, CONTINUE TO MONITOR CLOSELY.
--- NOTE | 2018-01-28 03:50 | NUR ---
PT SLEEPING, EASILY AROUSABLE, VITAL SIGNS STABLE, SB/SR ON TELE, DENIES PAIN, INCONTINENT OF URINE, PERINEAL CARE DONE, REPOSITIONED AND OFFLOAD PRESSURE AREAS, RT FOOT DRESSING DRY AND INTACT, MONITORED CLOSELY.
[2018-01-28 04:00] VITALS: BP 115/50
[2018-01-28] MEDS: DEXT 5% /NACL 0.9% 1,000 ML IV SCH ×2 (05:38→23:11)
--- NOTE | 2018-01-28 05:50 | NUR ---
PT SLEEPING EASILY AROUSABLE, BLOOD SUGAR CHECKED WITH 143 RESULT, DENIES PAIN, IVF INFUSING WELL, CONTINUE TO MONITOR CLOSELY.
[2018-01-28] MEDS: BLOOD GLUCOSE MONITORING 1 DEV DEV FS SCH ×4 (06:54→20:43)
--- NOTE | 2018-01-28 07:15 | NUR ---
PT AWAKE, NO SIGNS OF DISTRESS, REPORT GIVEN TO PRUDENCE CARPENTER FOR CONTINUITY OF CARE.
--- NOTE | 2018-01-28 07:20 | NUR ---
RECEIVED PT FROM DIABETES EDUCATOR NURSE, PT IS AWAKE AND LYING ON THE BED, SIDE RAILS ARE UP, BED IN LOW POSITION AND CALL LIGHT WITHIN REACH. FALL PRECAUTION INITIATED. PT HAS AN IV LINE IN PLACE AT THE RIGHT HAND G. 22 WITH D5NS AT 60 ML/HR, INTACT AND PATENT. PT HAS A RIGHT LEG ABRASION COVERED WITH GAUZE. RESPIRATIONS EVEN AND NO SIGN OF DISTRESS NOTED. WILL CONTINUE TO MONITOR.
[2018-01-28 07:37] LABS: BASOPHILS % (AUTO) 0.7 % (0.0-2.0); EOSINOPHILS # (AUTO) 0.3 K/uL (0-0.4); EOSINOPHILS % (AUTO) 4.8 % (0.0-4.0); HEMATOCRIT 36.5 % (36-48); HEMOGLOBIN 12.6 g/dL (12.0-16.0); LYMPHOCYTES # (AUTO) 2.7 K/uL (2.5-16.5); LYMPHOCYTES % (AUTO) 37.5 % (20.5-51.1); MEAN CORPUSCULAR HEMOGLOBIN 33 pg (27-31); MEAN CORPUSCULAR HGB CONC 35 g/dL (33-37); MEAN CORPUSCULAR VOLUME 95.5 fL (80-94); MONOCYTES # (AUTO) 0.5 K/uL (0.8-1.0); MONOCYTES % (AUTO) 7.4 % (1.7-9.3); NEUTROPHILS # (AUTO) 3.5 K/uL (1.8-7.7); NEUTROPHILS % (AUTO) 49.6 % (42.2-75.2); PLATELET COUNT (AUTO) 177 K/uL (140-450); RED BLOOD CELL COUNT(AUTO) 3.82 MIL/uL (4.20-5.40); RED CELL DISTRIBUTION WIDTH 13.2 % (11.6-13.7); WHITE BLOOD COUNT (AUTO) 7.1 K/uL (4.8-10.8)
--- NOTE | 2018-01-28 07:45 | NUR ---
PT IS AWAKE AND VITAL SIGNS TAKEN AND IS STABLE. NO SIGN OF DISTRESS NOTED AND WILL CONTINUE TO MONITOR.
[2018-01-28 08:00] VITALS: BP 134/54
--- NOTE | 2018-01-28 08:08 | NUR ---
DR. FORMAN AND THE RESIDENT DOCTORS CAME TO THE PT'S ROOM AND SPOKE TO THE PT AND TOLD THE PT THAT PHYSICAL THERAPY WILL BE COMING TO SEE AND EVALUATE THE PT. PT NODDED SIGN OF UNDERSTANDING AND ACCEPTANCE. NO SIGN OF DISTRESS NOTED ON THE PT AND WILL CONTINUE TO MONITOR.
[2018-01-28 08:25] LABS: ANION GAP 9.5 (8-16); CHLORIDE 107 mmol/L (98-107); CREATININE 0.4 mg/dL (0.6-1.3); GLUCOSE 146 mg/dL (74-106); POTASSIUM 3.5 mmol/L (3.5-5.1); SODIUM SERUM 141 mmol/L (136-145); UREA NITROGEN, BLOOD 5 mg/dL (7-18)
[2018-01-28 08:41] LABS: MAGNESIUM 1.8 mg/dL (1.8-2.4); PHOSPHORUS 3.2 mg/dL (2.5-4.9)
[2018-01-28] MEDS: LISINOPRIL 10 MG TAB PO SCH (09:35)
[2018-01-28] MEDS: ASPIRIN 81 MG TAB.CHEW PO SCH (09:35)
[2018-01-28] MEDS: LACTOBACILLUS RHAMNOSUS GG 1 EACH CAP PO SCH (09:35)
[2018-01-28] MEDS: ENOXAPARIN 40 MG/0.4 ML SYR SUBQ SCH (09:36)
--- NOTE | 2018-01-28 09:40 | NUR ---
PT IS AWAKE AND LYING ON THE BED, PT WAS POSITIONED IN A HIGH APARICIO'S PRIOR TO MEDICATION ADMINISTRATION, BP WAS CHECKED PER PARAMETER. PT TOLERATED THE MEDICATION WITH ASPIRATION PRECAUTION INITIATED. NO SIGN OF DISTRESS NOTED AND WILL CONTINUE TO MONITOR.
--- NOTE | 2018-01-28 10:30 | NUR ---
PT'S WOUND WAS CLEANED AND DRESSING WAS CHANGED BY WOUND CARE NURSE, MADELYN AND WAS ASSISTED BY THE RN, JAYDEN WITH THE CLEANING OF THE SCABS ON THE RIGHT TOES. PT WA MADE COMFORTABLE ON THE BED. NO SIGN OF DISTRESS NOTED ON THE BED. PT DENIES PAIN, WILL CONTINUE TO MONITOR PT.
--- NOTE | 2018-01-28 11:10 | NUR ---
REASON FOR EVALUATION: LOW KAVYA SCORE AND RLE WOUNDS SKIN ASSESSMENT DONE WITH PRIMARY RN WITH THIS 72 Y/O FEMALE PT ADMITTED [facility] WITH INITIAL DX DECREASE INTAKE X 3 DAYS AND WEIGHT LOSS X 4 WEEKS. PAST MEDICAL HX INCLUDES HTN, DM, CVA WITH RIGHT HEMIPLEGIA, DEPRESSION AND DYSLIPIDEMIA. ALL ABOVE INFORMATION OBTAINED FROM ADMISSION H&P. PT IS AWAKE, ALERT WITH DIFFICULT VERBAL EXPRESSION. LABS ARE WBC 7.1, H/H 12.6/36.5, GLUCOSE 138 AND ALBUMIN 3.3. PT IS AWAKE. SKIN IS WARM AND DRY, BLE NO HAIR GROWTH, NO EDEMA. DORSAL PEDAL PULSES PRESENT AND NORMAL. CAPILLARY REFILLED < 2 SEC. X 10 TOES. INCONTINENT OF BOWEL AND BLADDER. PLAN OF CARE DISCUSSED WITH PRIMARY RN AND PT. INTEGUMENTARY: -MULTIPLE SKIN BRUISES TO UPPER EXTREMITIES POSSIBLE FROM BLOOD DRAW WITH LARGEST ON LEFT HAND 3X4 CM SKIN INTACT. -MULTIPLE SCABS TO RIGHT TOES WITH LARGEST MEASURE 1.5X1CM TO 3RD TOE, BROWN DRY SCAB, NO ODOR. -RIGHT CALF SKIN ALTERATION 4X7X0.1 CM, WOUND BED IS RED, MOIST, NO ODOR, HARSHA WOUND SKIN FLAT AND INTACT. -RIGHT DORSAL FOOT SKIN ALTERATION 1.5X1.5X0.1 CM, WOUND BED IS PALE PINK, MOIST, NO ODOR, HARSHA WOUND SKIN FLAT AND INTACT. -RIGHT PLANTAR FOOT SKIN ALTERATION 3X5.5X0.1 CM, WOUND BED IS PALE PINK, MOIST, NO ODOR, HARSHA WOUND SKIN FLAT AND INTACT. RLE SKIN ALTERATIONS POSSIBLE OPENED BLISTER RECOMMENDATIONS: -KEEP SKIN DRY AND CLEAN AT ALL TIMES, PLEASE CHECK Q2H AND PRN FOR INCONTINENCY OF BOWEL AND BLADDER. - CLEANSE RIGHT CALF, DORSAL FOOT AND PLANTAR WOUNDS WITH NS. PAT DRY, APPLY SILVASORB GEL AND COVER WITH NON-ADHESIVE DRESSING, WRAP WITH KERLIX ROLLS QD AND PRN IF SOILING. -PAINT R/L TOES MULTIPLE SCABS WITH BETADINE SOLUTION BIDWC AND LEAVE IT OPEN TO AIR. -OFFLOAD BILATERAL HEELS BY PLACING PILLOWS UNDER CALVES UNLESS OTHERWISE CONTRAINDICATED -PRESSURE REDISTRIBUTION SURFACE THERAPY -TURN AND REPOSITION Q2H -CONTINUE TO FOLLOW RD RECOMMENDATIONS ALL ABOVE RECOMMENDATIONS DISCUSSED WITH PRIMARY RN. WILL FOLLOW UP PT Q7-10 DAYS. PLEASE CONTACT WOUND CARE NURSE FOR ANY QUESTION AND CHANGE OF WOUND CONDITION.
[2018-01-28] MEDS: INSULIN LISPRO SLIDING SCALE 100 UNITS/ML VIAL SUBQ PRN ×2 (11:51→20:55)
--- NOTE | 2018-01-28 11:53 | NUR ---
PT IS AWAKE AND LYING ON THE BED, BLOOD GLUCOSE CHECK DONE AND RESULT IS 153 AND INSULIN COVERAGE IS NEEDED FOR 2 UNITS. MEDICATION GIVEN AND PT TOLERATED IT. NO SIGN OF DISTRESS NOTED AND WILL CONTINUE TO MONITOR PT.
[2018-01-28 12:00] VITALS: BP 127/64
--- NOTE | 2018-01-28 15:16 | NUR ---
FAXED CONCURRENT REVIEW TO [facility] [phone] PHONE VIDAL [phone]
[2018-01-28 16:00] VITALS: BP 129/52
--- NOTE | 2018-01-28 16:16 | NUR ---
01/28/18 RD FOLLOW UP COMPLETED PLEASE REFER TO NUTRITION PROGRESS NOTE UNDER CARE ACTIVITY FOR ESTIMATED NUTRITION NEEDS. RD RECOMMENDATIONS: 1. CONTINUE MECHANICAL SOFT CCHO 60GM DIET WITH NECTAR THICK LIQUIDS TOLERATED 2. RECOMMEND ENSURE ENLIVE TID WITH MEALS 3. CONTINUE TO MONITOR PT WEIGHT CHANGES 4. RD WILL F/U 3-5 DAYS; MODERATE RISK. ARMANDO MOORE RD
--- NOTE | 2018-01-28 19:20 | NUR ---
RECEIVED PT REPORT AT BEDSIDE FROM DAY SHIFT NURSE. PT IN STABLE CONDITION. PT IS A/O X3. PT ABLE TO ANSWER YES AND NO QUESTIONS. PT IS ON RA. IV ACCESS IN R HAND 22G WITH IVF RUNNING PER MD ORDERS. IV IS PATENT AND INTACT. PT HAS ABRASIONS TO RLE AND FOOT. COVERED WITH CLEAN AND DRY DRESSING. PT HAS NO C/O PAIN. BED IS LOCKED, LOW POSITION WITH SIDE RAILS UP X2. CALL LIGHT IS WITHIN REACH. BOARD UPDATED. WILL CONTINUE TO MONITOR PT.
--- NOTE | 2018-01-28 19:20 | NUR ---
ENDORSED PT TO FILLER FEEDER NURSE FOR CONTINUITY OF CARE. PT IS STABLE AT THIS TIME.
[2018-01-28 20:00] VITALS: BP 124/66
[2018-01-28] MEDS: INSULIN LANTUS 100 UNITS/ML 10 ML VIAL SUBQ SCH (20:54)
--- NOTE | 2018-01-28 20:55 | NUR ---
BS CHECKED, 163. INSULIN COVERAGE GIVEN PER MD ORDERS. PT TOLERATED WELL. WILL CONTINUE TO MONITOR PT.
[2018-01-28] MEDS: ATORVASTATIN 20 MG TAB PO SCH (20:58)
[2018-01-28] MEDS: MIRTAZAPINE 15 MG TAB PO SCH (20:58)
--- NOTE | 2018-01-28 23:14 | NUR ---
STARTED NEW BAG OF IVF. PT COMFORTABLY ASLEEP IN BED. NO S/SX OF DISTRESS. WILL CONTINUE TO MONITOR PT.
[2018-01-29] VITALS: BP 119/57
--- NOTE | 2018-01-29 | NUR ---
V/S TAKEN AND RECORDED. NO S/S OF DISTRESS NOTED AT THIS TIME. CALL LIGHT WITHIN REACH.
--- NOTE | 2018-01-29 01:20 | NUR ---
PT ASLEEP IN BED. NO S/SX OF DISTRESS. WILL CONTINUE TO MONITOR.
--- NOTE | 2018-01-29 03:50 | NUR ---
PT VS WITHIN NORMAL LIMITS. PT IS ASLEEP. WILL CONTINUE TO MONITOR.
[2018-01-29 04:00] VITALS: BP 108/54
--- NOTE | 2018-01-29 05:45 | NUR ---
BS CHECKED, 116. NO COVERAGE NEEDED PER MD ORDERS. WILL CONTINUE TO MONITOR PT.
[2018-01-29] MEDS: BLOOD GLUCOSE MONITORING 1 DEV DEV FS SCH ×4 (05:57→20:09)
--- NOTE | 2018-01-29 05:58 | NUR ---
PT REFUSED AM LABS.
--- NOTE | 2018-01-29 07:15 | NUR ---
ENDORSED PT TO DAY SHIFT NURSE FOR CONTINUITY OF CARE. PT IN STABLE CONDITION.
--- NOTE | 2018-01-29 07:30 | NUR ---
RECEIVED PT REPORT AT BEDSIDE FROM DIRECTOR OF LEARNING RN. PT IS SLEEPING, EASILY AROUSED, OX3. PT ABLE TO ANSWER YES AND NO QUESTIONS. NO S/S OF ACUTE DISTRESS ON ROOM AIR. IV CATH NOTED ON R HAND 22G. NO BLOOD RETURN WHEN PULLED PLUNGER BACK, FLUSHED IV LINE, PT C/O PAIN, WILL REMOVED IV CATH AND PUT A NEW ONE LATER. PT HAS ABRASIONS TO RLE AND FOOT. COVERED WITH CLEAN AND DRY DRESSING. WILL CHANGE DRESSING ORDERED. PT HAS NO C/O PAIN. BED IN LOWEST POSITION WITH SIDE RAILS UP X2. CALL LIGHT IS WITHIN REACH. BOARD UPDATED. WILL CONTINUE TO MONITOR.
--- NOTE | 2018-01-29 07:31 | NUR ---
STOPPED IV INFUSION.
[2018-01-29 08:00] VITALS: BP 138/57
--- NOTE | 2018-01-29 08:35 | NUR ---
REMOVED IV CATH. TIP INTACT. PRESSURE APPLIED.
[2018-01-29] MEDS: ASPIRIN 81 MG TAB.CHEW PO SCH (09:40)
[2018-01-29] MEDS: LACTOBACILLUS RHAMNOSUS GG 1 EACH CAP PO SCH (09:41)
[2018-01-29] MEDS: LISINOPRIL 10 MG TAB PO SCH (09:41)
[2018-01-29] MEDS: ENOXAPARIN 40 MG/0.4 ML SYR SUBQ SCH (09:48)
--- NOTE | 2018-01-29 09:50 | NUR ---
NEW IV STARTED BY NURSE JUSTIN. 22 G TO THE RIGHT WRIST. PT TOLERATED WELL. RESUMED D5 NS AT 60ML/HR
--- NOTE | 2018-01-29 11:00 | NUR ---
relay worker Notes: I spoke to Young Barkley from [facility] at . I asked Young if patient can be accepted back to their facility and if they have a bed available for patient to return. These advertising copy writer did also explained to Young about recent conversation as of (01/29/18 11:00am) between [facility] Leather Production Worker Sonali and [employer]. Leather Production Worker Chiqui who had spoken about giving authorization for Patient to return to [facility] with an KAYY. Per Young she will be Checking with her staff and stated that Patient will be able to return to their facility when they are able to get the authorization from the Insurance and KAYY.
[2018-01-29 12:00] VITALS: BP 119/60
--- NOTE | 2018-01-29 12:30 | NUR ---
RIGHT 1ST, 2ND, 3RD AND 4TH TOES SCABS , BETADINE APPLIED, BOILING OFF WINDER. RIGHT DORSAL, PLANTAR, AND CALF ABRASIONS WERE RINSED WITH NS, PATTED DRY, APPLIED SILVASORB GEL, ADAPTIC DRESSING AND NON-ADHESIVE DRESSING, WRAPPED WITH KERLIX. PT TOLERATED WELL. Addendum: 01/29/18 at 1256 by Jt Castellanos RN VERY MINIMAL DRAINAGE NOTED. NO ODOR NOTED.
--- NOTE | 2018-01-29 13:31 | NUR ---
VIDAL FROM [facility] CALLED THIS AM. SHE SAID THAT THIS PATIENT NEEDS TO GO TO SNF SKILLED FOR PT. SHE SAID SHE PUT INQUIRY TO [facility] AND [facility]. I ASKED HER ABOUT [facility] SINCE SHE CAME FROM THERE. SHE SAID SHE WOULD SPEAK WITH HER SNF NURSE ABOUT SENDING HER BACK TO [facility]... VIDAL FROM [facility] CALLED BACK,[phone]. AND SAID THEY WILL AUTHORIZE [facility]. THE AUTH FOR [facility] IS [id number] AUTH FOR TRANSPORT, [employer] IS [id number] PHONE VIDAL FROM [facility] [phone] KESHAWN FROM [facility] WAS CONTACTED AND SHE SAID SHE STILL NEEDS AN KAYY AND SHE IS WORKING ON IT. SHE ALSO SAID THEY DO NOT HAVE A BED TODAY, HOPEFULLY TOMORROW. I CALLED VIDAL FROM [facility] AND LEFT A MESSAGE THAT [facility] NEEDS AND KAYY.
--- NOTE | 2018-01-29 13:46 | NUR ---
Internship Coordinator Notes: I contacted Young Barkley from [facility] at to inform her that Chiqui from [employer] has approved for patient to return to their facility. I provided her with Authorization # [id number]. Per Young she still needs both authorizations number and the KAYY and will be working on it until the end of the day and Patient will possibly be able to come back to their facility tomorrow 01/30/18. Per Young she will make arrangements and will update me tomorrow. l I thanked her for the information and I ended the call
--- NOTE | 2018-01-29 15:49 | NUR ---
SPOKE WITH VIDAL FROM [facility]. SHE SAID THE KAYY CAN TAKE UP TO 3 DAYS. I TOLD HER I RECEIVED A CALL FROM DEBORA FROM [facility] ABOUT THIS PATIENT AND THAT LEYDI WILL BE COMING OVER TO SEE THE PATIENT.
[2018-01-29 16:00] VITALS: BP 131/61
--- NOTE | 2018-01-29 17:31 | NUR ---
PHYSICAL THERAPY CO-SIGN The Physical Therapy Progress Notes documented by Bingo Worker have been reviewed. Reviewed/Co-Signed by: Lea Chamberlain PT Documentation Done by:OKSANA STEELE PTA POC REVIEWED W/ GEOTHERMAL POWERPLANT SUPERVISOR. Addendum: 01/29/18 at 1732 by Lea Chamberlain PT Amended: Links added.
[2018-01-29] MEDS: DEXT 5% /NACL 0.9% 1,000 ML IV SCH (17:51)
--- NOTE | 2018-01-29 18:15 | NUR ---
REPORT GIVEN TO LITERACY COORDINATOR RN. PT IN STABLE CONDITION. Addendum: 01/29/18 at 1940 by Jt Castellanos RN PLEASE DISCARD, WRONG TIME ENTERED.
--- NOTE | 2018-01-29 19:15 | NUR ---
REPORT GIVEN TO COMPUTER AIDED DESIGN DRAFTER RN. PT IN STABLE CONDITION.
--- NOTE | 2018-01-29 19:15 | NUR ---
RECEIVED REPORT FROM DAY SHIFT NURSE AT PT BEDSIDE. PT IN STABLE CONDITION. PT IS A/O X2. PT IS ON RA. IV ACCESS IN R HAND 22G WITH IVF INFUSING PER MD ORDERS. IV IS PATENT AND INTACT.PT HAS DRESSING COVERING RLE ABRASIONS. DRESSING IS DRY AND INTACT. SCABS NOTED ON R TOES FRY COOK. PT HAS NO C/O PAIN AT THIS TIME. BED IS LOCKED, LOW POSITION AND SIDE RAILS UP X2. BOARD UPDATED. CALL LIGHT WITHIN REACH. WILL CONTINUE TO MONITOR PT.
[2018-01-29 20:00] VITALS: BP 131/61
--- NOTE | 2018-01-29 20:00 | NUR ---
CHANGE IN PT ASSIGNMENT. PT REPORT GIVEN TO NEW PM NURSEELINA. PT IN STABLE CONDITION.
[2018-01-29] MEDS: INSULIN LANTUS 100 UNITS/ML 10 ML VIAL SUBQ SCH (21:02)
[2018-01-29] MEDS: MIRTAZAPINE 15 MG TAB PO SCH (21:02)
[2018-01-29] MEDS: ATORVASTATIN 20 MG TAB PO SCH (21:02)
[2018-01-29] MEDS: INSULIN LISPRO SLIDING SCALE 100 UNITS/ML VIAL SUBQ PRN (21:04)
[2018-01-30] VITALS: BP 125/62
--- NOTE | 2018-01-30 02:00 | NUR ---
SEEN PATIENT ASLEEP ON BED. FALL PRECAUTION APPLIED. CALL LIGHTS WITHIN REACH.
[2018-01-30 04:00] VITALS: BP 126/73
--- NOTE | 2018-01-30 04:10 | NUR ---
CHECKED PATIENT ASLEEP COMFORTABLE ON BED. NO S/S OF DISTRESS NOTED. CALL LIGHT WITHIN REACH. V/S TAKEN AND RECORDED. WILL CONTINUE TO MONITOR.
[2018-01-30] MEDS: BLOOD GLUCOSE MONITORING 1 DEV DEV FS SCH ×4 (06:26→21:17)
--- NOTE | 2018-01-30 07:20 | NUR ---
ENDORSEMENT GIVEN TO AM SHIFT NURSE AT BEDSIDE FOR CONTINUITY OF CARE. PATIENT IN STABLE CONDITION.
--- NOTE | 2018-01-30 07:30 | NUR ---
RECEIVED PT REPORT AT BEDSIDE FROM NEUROSCIENTIST RN. PT IS SLEEPING, EASILY AROUSED, OX3. PT ABLE TO ANSWER YES AND NO QUESTIONS. NO S/S OF ACUTE DISTRESS ON ROOM AIR. IV CATH NOTED ON R WRIST 22G, ASYMPTOMATIC, INFUSING WELL. PT HAS ABRASIONS TO RLE AND FOOT. DRESSING DRY AND INTACT. WILL CHANGE DRESSING ORDERED. DENIES PAIN. BED IN LOWEST POSITION WITH SIDE RAILS UP X2. CALL LIGHT IS WITHIN REACH. BOARD UPDATED. WILL CONTINUE TO MONITOR.
[2018-01-30 08:00] VITALS: BP 130/64
[2018-01-30] MEDS: ENOXAPARIN 40 MG/0.4 ML SYR SUBQ SCH (09:00)
[2018-01-30] MEDS: LISINOPRIL 10 MG TAB PO SCH (09:38)
[2018-01-30] MEDS: LACTOBACILLUS RHAMNOSUS GG 1 EACH CAP PO SCH (09:38)
[2018-01-30] MEDS: ASPIRIN 81 MG TAB.CHEW PO SCH (09:38)
--- NOTE | 2018-01-30 10:24 | NUR ---
Instrument Installer Notes: Young Barkley From [facility] Contacted me stating that she has a bed for patient to return to their facility on Friday02/01/18 and inform me that she has The KAYY finalized and ready. I thanked her for her information.
[2018-01-30] MEDS: DEXT 5% /NACL 0.9% 1,000 ML IV SCH ×2 (10:38→21:17)
[2018-01-30 12:00] VITALS: BP 137/74
--- NOTE | 2018-01-30 13:50 | NUR ---
PT ONLY EAT 10% LUNCH. OFFERED PT PUDDING, PT SAID OK. PT FINISHED THE PUDDING.
--- NOTE | 2018-01-30 14:49 | NUR ---
I CALLED RONAL FROM [facility]. SHE SAID SHE SPOKE WITH VIDAL AT [facility]. ALL IS SET UP FOR THIS PATIENT TO GO TO [facility] ON FRIDAY ROOM [address]. PHONE [facility] [phone] AUTH FOR [facility], [id number]. I CALLED VIDAL AT [facility] AND SHE CONFIRMED EVERY THING IS SET FOR PATIENT TO GO TO [facility] ON FRIDAY. AUTH FOR TRANSPORT, [id number]. USE [employer] PHONE [phone]. JUAN PABLO FOSSSOUNDSCRIBER MECHANIC NURSE AWARE.
--- NOTE | 2018-01-30 15:31 | NUR ---
PHYSICAL THERAPY CO-SIGN The Physical Therapy Progress Notes documented by Secure Software Assessor have been reviewed. I CONCUR W/MOBILE LAB TECHNICIAN NOTE; CONT PER TX PLAN Reviewed/Co-Signed by: Rosy Baez PT Documentation Done by: OKSANA STEELE,CLARI Addendum: 01/30/18 at 1532 by Rosy Baez PT Amended: Links added.
--- NOTE | 2018-01-30 15:40 | NUR ---
RIGHT 1ST, 2ND, 3RD AND 4TH TOES SCABS , BETADINE APPLIED, COLE. RIGHT DORSAL, PLANTAR, AND CALF ABRASIONS WERE RINSED WITH NS, PATTED DRY, APPLIED SILVASORB GEL, ADAPTIC DRESSING AND NON-ADHESIVE DRESSING, WRAPPED WITH KERLIX. PT TOLERATED WELL.
[2018-01-30 16:00] VITALS: BP 136/52
--- NOTE | 2018-01-30 18:00 | NUR ---
STANDBY ASSISTANCE PROVIDED, PT PREFERS TO EAT BY HERSELF. NO S/S OF ACUTE DISTRESS.
--- NOTE | 2018-01-30 19:10 | NUR ---
REPORT GIVEN TO MANAGER EQUIPMENT RN. PT IN STABLE CONDITION.
--- NOTE | 2018-01-30 19:11 | NUR ---
RECEIVED REPORT FROM DAY SHIFT NURSE PATRICIA-RN AT BEDSIDE. PT AOX4-DIFFICULTY SPEAKING SENTENCES HOWEVER ABLE TO ANSWER YES AND NO QUESTIONS. IV CATH NOTED ON R WRIST 22G, ASYMPTOMATIC, INFUSING WELL. PT HAS ABRASIONS TO RLE AND FOOT. DRESSING DRY AND INTACT. DISCUSSED PLAN OF CARE AND PT VERBALIZED UNDERSTANDING. NO S/S OF RESPIRATORY DISTRESS OR DISCOMFORT NOTED AT THIS TIME. BED IN LOWEST POSITION WITH SIDE RAILS UP X2. CALL LIGHT IS WITHIN REACH. WHITE BOARD UPDATED. WILL CONTINUE TO MONITOR.
[2018-01-30 20:00] VITALS: BP 105/54
--- NOTE | 2018-01-30 20:00 | NUR ---
VITAL SIGNS TAKEN AND TOLERATED WELL. BLOOD GLUCOSE 190-WILL ADMINISTER INSULIN COVERAGE. NO S/S OF RESPIRATORY DISTRESS OR DISCOMFORT NOTED AT THIS TIME. WILL CONTINUE TO MONITOR.
[2018-01-30] MEDS: MIRTAZAPINE 15 MG TAB PO SCH (21:13)
[2018-01-30] MEDS: ATORVASTATIN 20 MG TAB PO SCH (21:13)
[2018-01-30] MEDS: INSULIN LANTUS 100 UNITS/ML 10 ML VIAL SUBQ SCH (21:15)
[2018-01-30] MEDS: INSULIN LISPRO SLIDING SCALE 100 UNITS/ML VIAL SUBQ PRN (21:17)
--- NOTE | 2018-01-30 21:20 | NUR ---
SCHEDULED MEDICATIONS GIVEN AND TOLERATED WELL. INSULIN COVERAGE GIVEN AND TOLERATED WELL. NEW BAG OF IVF HUNG AND PT TOLERATED WELL. NO S/S OF RESPIRATORY DISTRESS OR DISCOMFORT NOTED AT THIS TIME. WILL CONTINUE TO MONITOR.
--- NOTE | 2018-01-30 23:00 | NUR ---
PT SLEEPING AT THIS TIME. NO S/S OF RESPIRATORY DISTRESS OR DISCOMFORT NOTED AT THIS TIME. WILL CONTINUE TO MONITOR.
[2018-01-31] VITALS: BP 109/48
--- NOTE | 2018-01-31 | NUR ---
VITAL SIGNS TAKEN AND TOLERATED WELL. NO S/S OF RESPIRATORY DISTRESS OR DISCOMFORT NOTED AT THIS TIME. WILL CONTINUE TO MONITOR.
--- NOTE | 2018-01-31 02:00 | NUR ---
PT CONTINUES TO SLEEP AT THIS TIME. NO S/S OR RESPIRATORY DISTRESS OR DISCOMFORT NOTED. WILL CONTINUE TO MONITOR.
--- NOTE | 2018-01-31 04:00 | NUR ---
PT REFUSED VITAL SIGNS. NO S/S OF RESPIRATORY DISTRESS OR DISCOMFORT NOTED AT THIS TIME. WILL CONTINUE TO MONITOR.
--- NOTE | 2018-01-31 06:00 | NUR ---
BLOOD GLUCOSE 122- NO INSULIN COVERAGE NEEDED.
[2018-01-31] MEDS: BLOOD GLUCOSE MONITORING 1 DEV DEV FS SCH ×4 (06:47→20:20)
--- NOTE | 2018-01-31 07:28 | NUR ---
ENDORSED PT CARE TO DAY SHIFT NURSE SITAL-RN FOR CONTINUITY OF CARE.
--- NOTE | 2018-01-31 07:51 | NUR ---
CHECKED ON PT. PT LYING ON HER BED. REFUSED THE VS . WILL CHECK WITH PT AND TRY TO RECORD VS AGAIN. ALL SAFETY MEASURE IN PLACE. WILL CONTINUE TO MONITOR PT.
[2018-01-31 08:00] VITALS: BP 137/55
[2018-01-31] MEDS: LACTOBACILLUS RHAMNOSUS GG 1 EACH CAP PO SCH (09:04)
[2018-01-31] MEDS: ASPIRIN 81 MG TAB.CHEW PO SCH (09:05)
[2018-01-31] MEDS: LISINOPRIL 10 MG TAB PO SCH (09:05)
[2018-01-31] MEDS: ENOXAPARIN 40 MG/0.4 ML SYR SUBQ SCH (09:15)
--- NOTE | 2018-01-31 09:17 | NUR ---
ADMINISTERED MEDS ORDERED TO PT. PT ON ASPIRATION PRECAUTION. ADMINISTERED MEDS WITH APPLE SAUCE. TOLERATED WELL. KEPT HER UP ON HER BED ON SITTING POSITION FOR 30 MIN TO PREVENT THE ASPIRATION. DENIES ANY [PAIN. NO SIGN OF DISTRESS. ALL SAFETY MEASURE IN PLACE. INFORMED PT THAT SHE NEEDS TO BE IN A UPRIGHT POSITION AFTER SHE EATS TO PREVEN ASPIRATION RISK. PLACED CALL LIGHT WITHIN PT REACH. DEMONSTRATED TO USE THE CALL LIGHT FOR ANY HELP. WILL CONTINUE TO MONITOR PT.
--- NOTE | 2018-01-31 10:24 | NUR ---
CHECKED ON PT. PT SITTING ON HER BED. NO SIGN OF DISTRESS. DENIES ANY PAIN OR DISCOMFORT. CALL LIGHT WITHIN REACH. BED AT LOWER POSITION.INFORMED TO USE CALL LIGHT FOR ANY HELP. VERBALISED UNDERSTANDING. WILL CONTINUE TO MONITOR PT.
[2018-01-31 11:57] VITALS: BP 116/59
--- NOTE | 2018-01-31 12:00 | NUR ---
CHECKED ON PT. SOUBRETTE AT THE BEDSIDE. STATES PT HAS BM , CHANGED HER. PT CALM AND COOPERATIVE. HAS THE IV SITE INFILTRATED. REMOVED THE IV SITE FORM THE PT. WILL PLACE NEW IV ON PT. NO SIGN OF DISTRESS. PT CALL LIGHT WITHIN REACH. BED ALARM ON. BED AT THE LOWER POSITION. INFORMED PT TO USE CALL LIGHT FOR ANY HELP. WILL CONTINUE TO MONITOR PT.
--- NOTE | 2018-01-31 13:30 | NUR ---
CHECKED ON PT. INSERT IV SITE ON PT ON HER RT WRIST 22 G. IV SITE INTACT AND PATENT. IVF INFUSING WELL. DID WOUND DRESSING ON THE PT. NO DRAINAGE, NO ODOR PRESENT . STUDENT AT THE BEDSIDE. PT DENIES PAIN. TOLERATED THE DRESSING CHANGE WELL. PT REFUSED TO EAT HER LUNCH. ASK IF WANTS TO BE FED, DENIES . PLACED THE BED AT THE LOWER POSITION. CALL LIGHT WITHIN PT REACH. NO SIGN OF DISTRESS. WILL CONTINUE TO MONITOR PT.
--- NOTE | 2018-01-31 15:25 | NUR ---
CHECKED ON PT. PT LYING ON HER BED COMFORTABLY ON HER BED. DENIES ANY DISTRESS. WILL CONTINUE TO MONITOR PT.
[2018-01-31 16:00] VITALS: BP 136/58
--- NOTE | 2018-01-31 16:30 | NUR ---
CHECKED ON PT. SLEEPING ON HER BED. DENIES ANY PAIN . IVF INFUSING WELL @ 602ML/HR. PT CALM AND COOPERATIVE. BS 104 NOTED. NORMAL VS NOTED. ALL SAFETY MEASURE IN PLACE. WILL CONTINUE TO MONITOR PT.
[2018-01-31] MEDS: DEXT 5% /NACL 0.9% 1,000 ML IV SCH (16:35)
--- NOTE | 2018-01-31 18:00 | NUR ---
CHECKED ON PT. FOOD TRAY AT THE BEDSIDE. PT STATES SHE IS NO HUNGRY. ASKED SHE NEEDS FEEDER. NOD HER HEAD FOR NO. TRIED TO FEED HER, SHE REFUSED. NO SIGN OF DISTRESS. IVF D5 INFUSING WELL @X 60ML/HR. NO SIGN OF DISTRESS. ALL SAFETY MEASURE IN PLACE. WILL CONTINUE TO MONITOR PT.
--- NOTE | 2018-01-31 19:17 | NUR ---
ENDORSED PT TO PM NURSE AT THE BEDSIDE. PT IN STABLE IN CONDITION.
--- NOTE | 2018-01-31 19:18 | NUR ---
RECEIVED PATIENT AWAKE LYING COMFORTABLE ON BED. FALL PRECAUTION APPLIED. EXPLAIN PLAN OF CARE AND VERBALIZED UNDERSTANDING. CALL LIGHTS WITHIN REACH. WILL CONTINUE TO MONITOR.
[2018-01-31 20:00] VITALS: BP 133/52
[2018-01-31] MEDS: MIRTAZAPINE 15 MG TAB PO SCH (20:21)
[2018-01-31] MEDS: ATORVASTATIN 20 MG TAB PO SCH (20:21)
[2018-01-31] MEDS: INSULIN LANTUS 100 UNITS/ML 10 ML VIAL SUBQ SCH (20:38)
--- NOTE | 2018-01-31 21:00 | NUR ---
BS TAKEN AND RECORDED. LANTUS GIVEN SCHEDULED. MEDICATION GIVEN TOLERATED WELL. REPOSITIONED TO COMFORTABLE POSITION PER PATIENT REFERENCE. ALL NEEDS ATTENDED. NO S/S OF DISTRESS NOTED AT THIS TIME. CALL LIGHT WITHIN REACH. FALL PRECAUTION APPLIED. WILL CONTINUE TO MONITOR.
[2018-02-01] VITALS: BP 119/47
--- NOTE | 2018-02-01 | NUR ---
V/S TAKEN AND RECORDED. NO S/S OF DISTRESS NOTED. FALL PRECAUTION APPLIED. CALL LIGHT WITHIN REACH. WILL CONTINUE TO MONITOR.
--- NOTE | 2018-02-01 02:00 | NUR ---
CHECKED PATIENT ASLEEP ON BED IN COMFORTABLE POSITION. FALL PRECAUTION APPLIED. NO S/S OF DISTRESS NOTED AT THIS TIME. CALL LIGHTS WITHIN REACH.
[2018-02-01 04:00] VITALS: BP 142/57
--- NOTE | 2018-02-01 04:00 | NUR ---
V/S TAKEN AND RECORDED. NO S/S OF DISTRESS. PATIENT RESTING COMFORTABLY ON BED. FALL PRECAUTION APPLIED. CALL LIGHT WITHIN REACH. WILL CONTINUE TO MONITOR.
[2018-02-01] MEDS: BLOOD GLUCOSE MONITORING 1 DEV DEV FS SCH ×2 (06:42→12:07)
--- NOTE | 2018-02-01 07:10 | NUR ---
ENDORSEMENT GIVEN AT BEDSIDE TO AM SHIFT NURSE FOR CONTINUITY OF CARE. PATIENT IN STABLE CONDITION.
--- NOTE | 2018-02-01 07:11 | NUR ---
RECEIVED REPORT FROM LAPPER NURSE TAB AT BEDSIDE FOR CONTINUITY OF CARE. PT IS AWAKE AND ORIENTED X3. INTRODUCED SELF AND UPDATED BOARD. NO COUGH. NO SOB. O2 SAT 95% ON RA. LUNG SOUNDS CLEAR. PT DENIES PAIN. WITH WOUND ON R FOOT. DRESSING DRY AND INTACT. DENIES PAIN. NO SIGNS OF DISTRESS. CALL LIGHT WITHIN REACH. BED IN LOW POSITION, WHEELS LOCKED. WILL CONTINUE TO MONITOR.
[2018-02-01 08:00] VITALS: BP 137/59
[2018-02-01] MEDS: ASPIRIN 81 MG TAB.CHEW PO SCH (09:21)
[2018-02-01] MEDS: LACTOBACILLUS RHAMNOSUS GG 1 EACH CAP PO SCH (09:21)
--- NOTE | 2018-02-01 09:21 | NUR ---
ADMINISTERED SCHEDULED MEDS. PT TOLERATED WELL. NO SIGNS OF DISTRESS. PT HAS DECREASED APPETITE. BREAKFAST TRAY AT BEDSIDE. PT DID NOT WANT THE REST OF FOOD AT THIS TIME. CALL LIGHT WITHIN REACH. BED IN LOW POSITION, WHEELS LOCKED. WILL CONTINUE TO MONITOR.
[2018-02-01] MEDS: LISINOPRIL 10 MG TAB PO SCH (09:22)
--- NOTE | 2018-02-01 09:27 | NUR ---
CALLED [employer] FOR TRANSPORTATION AND THEY GAVE ME DIFFERENT NUMBER TO CALL [facility] TRANSPORTATION AND SPOKE TO MENDEZ. HE SAID HE WILL CALL BACK FOR TRANSPORTATION COMPANY TO BE USED.
[2018-02-01] MEDS: ENOXAPARIN 40 MG/0.4 ML SYR SUBQ SCH (09:28)
--- NOTE | 2018-02-01 11:00 | NUR ---
CALLED [facility] AND GAVE REPORT TO HORACIO FOSS. GAVE BRIM SETTER TIME 12:30PM AND LEFT CALL BACK NUMBER.
--- NOTE | 2018-02-01 11:45 | NUR ---
DRESSING CHANGE DONE TO R LEG AND FOOT. CLEANSED WITH NS AND PATTED DRY. APPLIED SILVASORB GEL AND ADAPTIC DRESSING. COVERED WITH OPTIFOAM DRESSING AND WRAPPED WITH KERLIX. CLEANSED R TOES WITH NS AND PATTED DRY. PAINTED WITH BETADINE. PICTURES TAKEN OF WOUNDS. PT TOLERATED WELL.
--- NOTE | 2018-02-01 11:52 | NUR ---
GAVE D/C INSTRUCTIONS, FORMS, RX, LABS, AND FOLLOW UP APPOINTMENT TO PT. PT VERBALIZED UNDERSTANDING AND NODDED HEAD YES. PT UNABLE TO SIGN FORMS DUE TO R SIDED HEMIPARESIS. PT CHANGED IN ORANGE GOWN AND LINENS CHANGED. WILL CONTINUE TO MONITOR.
[2018-02-01 12:00] VITALS: BP 141/72
[2018-02-01] MEDS: DEXT 5% /NACL 0.9% 1,000 ML IV SCH (12:38)
--- NOTE | 2018-02-01 13:24 | NUR ---
PT D/C TO GO TO [facility]. GAVE REPORT TO TRANSPORTER. D/C IV TO L WRIST. IV CATHETER TIP INTACT. APPLIED DRESSING AND PRESSURE TO SITE. NO BLEEDING NOTED. REMOVED ID BAND AND TELE MONITOR. PT LEFT WITH ALL PERSONAL BELONGINGS. LEFT IN STABLE CONDITION VIA GURNEY ACCOMPANIED BY TRANSPORTERS.
== END 2018-02-01 13:25 | DRG 690 ==
LOC: MED 14:10 → MTU 17:45
PROVIDERS: ADMIT General Practice; ATTEND General Practice
DX: N39.0 Urinary tract infection, site not specified (principal); J98.11 Atelectasis; E44.1 Mild protein-calorie malnutrition; I69.351 Hemiplegia and hemiparesis following cerebral infarction affecting right dominant side; I10 Essential (primary) hypertension; E86.0 Dehydration; F32.9 Major depressive disorder, single episode, unspecified; E78.5 Hyperlipidemia, unspecified; E11.65 Type 2 diabetes mellitus with hyperglycemia; R13.10 Dysphagia, unspecified; E11.51 Type 2 diabetes mellitus with diabetic peripheral angiopathy without gangrene; E87.6 Hypokalemia; L89.892 Pressure ulcer of other site, stage 2; E83.42 Hypomagnesemia; I69.391 Dysphagia following cerebral infarction; I69.390 Apraxia following cerebral infarction; Z74.01 Bed confinement status; Z99.3 Dependence on wheelchair; Z79.4 Long term (current) use of insulin; Z79.82 Long term (current) use of aspirin; Z79.899 Other long term (current) drug therapy; Z68.24 Body mass index [BMI] 24.0-24.9, adult
CPT/HCPCS: 36415; 71045; 80048; 80053; 80305; 81001; 82948; 83036; 83605; 83690; 83735; 83880; 84100; 84134; 84436; 84443; 84484; 85025; 85610; 85730; 87040; 87081; 87086; 92610; 93005; 93925; 93970; 96365; 97110; 97161-GP; 97530; 97799; 99285; A4649; J0696; J1650; J1815; J7030; J7042; J7060; Q0092